=== PATIENT | male | born 1970 | race Asian ===

== ENCOUNTER 2017-03-06 22:55 | Emergency (ER) | payer MEDICAID ==
[~2017-03-06] VITALS: Ht 172.7 cm; Wt 186.0 kg
[~2017-03-06 22:55] MED LIST: OLAN15TA2 PO; QUET25TA PO
[2017-03-06] MEDS ORDERED: METO50 PO (23:05)
[2017-03-06] MEDS ORDERED: METF500T4 PO (23:05)
[2017-03-06 23:11] LABS: GLUCOSE COMMENT 1 Doctor Notified; GLUCOSE,POINT OF CARE 213 MG/DL (70-110)
[2017-03-07] MEDS ORDERED: PROPARACAINE HCL 0.5% 15 ML OPHTHALMIC SOLUTION OD ONE (01:15)
[2017-03-07 02:16] VITALS: BP 146/100
== END 2017-03-07 02:26 | disposition home or self-care (01) ==
LOC: EMS 22:58
DX: H33.22 Serous retinal detachment, left eye (principal); I10 Essential (primary) hypertension; E11.9 Type 2 diabetes mellitus without complications; F17.210 Nicotine dependence, cigarettes, uncomplicated
CPT/HCPCS: 82962; 99282

== ENCOUNTER 2017-04-18 10:36 | Inpatient (IN) | payer MEDICAID ==
[~2017-04-18] VITALS: Ht 172.7 cm; Wt 79.1 kg
[~2017-04-18 10:36] MED LIST changes: +METF500T4 PO; +METO50 PO
[2017-04-18 10:47] LABS: GLUCOSE,POINT OF CARE 142 MG/DL (70-110)
[2017-04-18 11:30] LABS: BASOPHILS % (AUTO) 0.2 % (0.0-2.0); EOSINOPHILS % (AUTO) 0.4 % (1.0-6.0); HEMATOCRIT 49.4 % (41-53); HEMOGLOBIN 16.3 g/dL (13.5-17.5); LYMPHOCYTES % (AUTO) 16.4 % (22.0-44.0); MEAN CORPUSCULAR HEMOGLOBIN 30.9 pg (26.0-34.0); MEAN CORPUSCULAR HGB CONC 32.9 G/dL (31.0-37.0); MEAN CORPUSCULAR VOLUME 94 fL (80-100); MONOCYTES # (AUTO) 0.8 K/uL (0.1-1.0); MONOCYTES % (AUTO) 6.9 % (2.0-9.0); NEUTROPHILS # (AUTO) 9.4 K/uL (1.8-7.7); NEUTROPHILS % (AUTO) 76.1 % (40.0-70.0); PLATELET COUNT (AUTO) 208 K/uL (150-450); RED BLOOD CELL COUNT(AUTO) 5.26 MIL/uL (4.50-5.90); RED CELL DISTRIBUTION WIDTH 13.1 % (11.5-14.5); WHITE BLOOD COUNT (AUTO) 12.3 K/uL (4.5-11.0)
[2017-04-18 11:40] LABS: ANION GAP 10 mmol/L (8-16); CALCIUM, TOTAL 8.6 mg/dL (8.8-10.5); CARBON DIOXIDE 27 mmol/L (22-29); CHLORIDE 102 mmol/L (98-107); CREATININE 1.35 mg/dL (0.60-1.30); GLOMERULAR FILTR. RATE CALC 57 mL/min (>60); POTASSIUM 3.9 mmol/L (3.5-5.1); SODIUM SERUM 139 mmol/L (136-145); UREA NITROGEN, BLOOD 10 mg/dL (7-18)
[2017-04-18] MEDS ORDERED: LORazepam 2 MG TABLET PO PRN (11:45)
[2017-04-18] MEDS ORDERED: OLANZapine 5 MG RAPDIS TABLET PO PRN (11:45)
[2017-04-18] MEDS ORDERED: ZOLPIDEM TARTRATE 10 MG TABLET PO PRN (11:45)
[2017-04-18 11:51] LABS: ALANINE AMINOTRANSFERASE 65 U/L (12-78); ALBUMIN 4.3 g/dL (3.4-5.0); ASPARTATE AMINOTRANSFERASE 33 U/L (15-37); BILIRUBIN,TOTAL 0.8 mg/dL (0.1-1.0); TOTAL PROTEIN, SERUM 7.8 g/dL (6.4-8.2)
[2017-04-18 11:52] LABS: SALICYLATE 1.4 mg/dL (2.8-20.0)
[2017-04-18 12:01] LABS: ACETAMINOPHEN < 2 mcg/mL (10-30)
[2017-04-18 12:24] LABS: LACTIC ACID 2.9 mmol/L (0.4-2.0)
[2017-04-18] MEDS ORDERED: SODIUM CHLORIDE 0.9% 1,000 ML IV ONE (13:00)
[2017-04-18 13:26] LABS: REFLEX LACTIC ACID? YES YES
[2017-04-18 14:58] LABS: GLUCOSE,POINT OF CARE 89 MG/DL (70-110)
[2017-04-18 15:05] LABS: ANION GAP 7 mmol/L (8-16); CALCIUM, TOTAL 8.3 mg/dL (8.8-10.5); CARBON DIOXIDE 28 mmol/L (22-29); CHLORIDE 104 mmol/L (98-107); CREATININE 1.21 mg/dL (0.60-1.30); GLOMERULAR FILTR. RATE CALC > 60 mL/min (>60); POTASSIUM 4.4 mmol/L (3.5-5.1); SODIUM SERUM 139 mmol/L (136-145); UREA NITROGEN, BLOOD 10 mg/dL (7-18)
[2017-04-18 15:09] LABS: SALICYLATE < 2.8 mg/dL (2.8-20.0)
[2017-04-18 15:11] LABS: ALANINE AMINOTRANSFERASE 60 U/L (12-78); ALBUMIN 3.8 g/dL (3.4-5.0); ASPARTATE AMINOTRANSFERASE 32 U/L (15-37); BILIRUBIN,TOTAL 0.7 mg/dL (0.1-1.0); TOTAL PROTEIN, SERUM 7.1 g/dL (6.4-8.2)
[2017-04-18 15:14] LABS: LACTIC ACID 1.4 mmol/L (0.4-2.0)
[2017-04-18 15:49] LABS: ACETAMINOPHEN < 2 mcg/mL (10-30)
[2017-04-18] MEDS ORDERED: HALOPERIDOL LACTATE 5 MG/ML VIAL ONE (16:26)
[2017-04-18] MEDS ORDERED: DiphenhydrAMINE HCL 50 MG/ML VIAL ONE (16:26)
[2017-04-18] MEDS ORDERED: LORazepam 2 MG/ML VIAL ONE (16:26)
[2017-04-18] MEDS ORDERED: HALOPERIDOL LACTATE 5 MG/ML VIAL IM ONE (16:30)
[2017-04-18] MEDS ORDERED: DiphenhydrAMINE HCL 50 MG/ML VIAL IM ONE (16:30)
[2017-04-18] MEDS ORDERED: LORazepam 2 MG TABLET PO ONE (16:30)
[2017-04-18] MEDS ORDERED: DiphenhydrAMINE HCL 50 MG CAPSULE PO ONE (16:30)
[2017-04-18] MEDS ORDERED: HALOPERIDOL 5 MG TABLET PO ONE (16:30)
[2017-04-18] MEDS ORDERED: LORazepam 2 MG/ML VIAL IM ONE (16:30)
[2017-04-18 17:23] LABS: GLUCOSE,POINT OF CARE 122 MG/DL (70-110)
[2017-04-18 18:08] VITALS: BP 133/73
[2017-04-18 18:27] LABS: GLUCOSE,POINT OF CARE 113 MG/DL (70-110)
[2017-04-18] MEDS ORDERED: INSULIN ASPART 100 UNITS/ML SQ PRN (18:45)
[2017-04-18] MEDS ORDERED: GLUCAGON,HUMAN RECOMBINANT 1 MG VIAL IM PRN (18:45)
[2017-04-18] MEDS ORDERED: PNEUMOCOCCAL VACCINE POLYVALENT 0.5 ML VIAL [PPSV23] IM ONE (19:00)
[2017-04-18] MEDS: OLANZapine 7.5 MG TABLET PO SCH (20:50)
[2017-04-18 21:48] LABS: GLUCOSE,POINT OF CARE 165 MG/DL (70-110)
[2017-04-19] MEDS: MetFORMIN HCL 500 MG TABLET PO SCH ×2 (06:25→17:05)
[2017-04-19 06:33] LABS: GLUCOSE,POINT OF CARE 109 MG/DL (70-110)
[2017-04-19 06:56] VITALS: BP 101/72
[2017-04-19 08:16] VITALS: BP 114/66
[2017-04-19 08:29] LABS: CHOL/HDL RATIO 3.6 (4.2-7.3)
[2017-04-19] MEDS: METOPROLOL TARTRATE 50 MG TABLET PO SCH ×2 (10:02→17:05)
[2017-04-19 16:00] VITALS: BP 112/68
[2017-04-19 17:43] LABS: GLUCOSE,POINT OF CARE 108 MG/DL (70-110)
[2017-04-19] MEDS ORDERED: ACETAMINOPHEN 325 MG TABLET PO PRN (18:15)
[2017-04-19] MEDS ORDERED: BACITRACIN 28.4 GM OINTMENT TP PRN (18:15)
[2017-04-19] MEDS ORDERED: MAGNESIUM HYDROXIDE SUSPENSION 30 ML UDCUP PO PRN (18:15)
[2017-04-19] MEDS ORDERED: PETROLATUM,WHITE 71 GM JELLY TP PRN (18:15)
[2017-04-19] MEDS ORDERED: IBUPROFEN 600 MG TABLET PO PRN (18:15)
[2017-04-19] MEDS ORDERED: MAG HYDROX/AL HYDROX/SIMETH ES 30 ML SUSPENSION UDCUP PO PRN (18:15)
[2017-04-19] MEDS ORDERED: ONDANSETRON HCL 4 MG TABLET PO PRN (18:15)
[2017-04-19] MEDS ORDERED: CloNIDine HCL 0.1 MG TABLET PO PRN (18:15)
[2017-04-19] MEDS ORDERED: LOPERAMIDE HCL 2 MG CAPSULE PO PRN (18:15)
[2017-04-19] MEDS ORDERED: ALBUTEROL SULFATE HFA 90 MCG/PUFF 8 GM INHALER IH PRN (18:15)
[2017-04-19] MEDS ORDERED: BENZOCAINE/MENTHOL LOZENGE MM PRN (18:15)
[2017-04-19] MEDS: OLANZapine 7.5 MG TABLET PO SCH (20:39)
[2017-04-19 21:14] LABS: GLUCOSE,POINT OF CARE 137 MG/DL (70-110)
[2017-04-20 01:41] VITALS: BP 103/64
[2017-04-20 06:08] LABS: GLUCOSE,POINT OF CARE 94 MG/DL (70-110)
[2017-04-20] MEDS: MetFORMIN HCL 500 MG TABLET PO SCH ×2 (06:20→16:35)
[2017-04-20 08:38] VITALS: BP 109/69
[2017-04-20] MEDS: METOPROLOL TARTRATE 50 MG TABLET PO SCH ×2 (09:20→16:35)
[2017-04-20 11:07] LABS: GLUCOSE,POINT OF CARE 124 MG/DL (70-110)
[2017-04-20 16:00] VITALS: BP 115/70
[2017-04-20 17:12] LABS: GLUCOSE,POINT OF CARE 116 MG/DL (70-110)
[2017-04-20] MEDS: OLANZapine 7.5 MG TABLET PO SCH (20:25)
[2017-04-20 20:36] LABS: GLUCOSE,POINT OF CARE 127 MG/DL (70-110)
[2017-04-21 06:02] LABS: GLUCOSE,POINT OF CARE 137 MG/DL (70-110)
[2017-04-21] MEDS: MetFORMIN HCL 500 MG TABLET PO SCH (06:11)
[2017-04-21 06:38] VITALS: BP 103/67
[2017-04-21] MEDS: METOPROLOL TARTRATE 50 MG TABLET PO SCH (08:39)
[2017-04-21 08:47] VITALS: BP 112/73
[2017-04-21 11:47] LABS: GLUCOSE,POINT OF CARE 94 MG/DL (70-110)
== END 2017-04-21 12:15 | disposition home or self-care (01) | DRG 750 ==
LOC: EMS 10:37 → B3A 13:50
DX: F20.0 Paranoid schizophrenia (principal); E11.65 Type 2 diabetes mellitus with hyperglycemia; I10 Essential (primary) hypertension; T38.3X2A Poisoning by insulin and oral hypoglycemic [antidiabetic] drugs, intentional self-harm, initial encounter; Y92.009 Unspecified place in unspecified non-institutional (private) residence as the place of occurrence of the external cause; F15.10 Other stimulant abuse, uncomplicated; F17.200 Nicotine dependence, unspecified, uncomplicated; K59.00 Constipation, unspecified; G47.00 Insomnia, unspecified; Z91.14 Patient's other noncompliance with medication regimen
CPT/HCPCS: 82948; 82962; 83605; 87081; 93005; 96360; 96361; 96372; 99285; G0480; G0481; J1200; J1630; J2060; J7030

== ENCOUNTER 2018-09-09 07:15 | Emergency (ER) | payer MEDICAID ==
[~2018-09-09] VITALS: Ht 172.7 cm; Wt 84.1 kg
[~2018-09-09 07:15] MED LIST changes: +METF-960 PO; -METF500T4 PO; -QUET25TA PO
[2018-09-09] MEDS ORDERED: ENTE0.5T4 PO (07:37)
[2018-09-09] MEDS ORDERED: ASPI-1182 PO (07:37)
[2018-09-09 07:46] VITALS: BP 155/120
[2018-09-09 07:46] LABS: BASOPHILS % (AUTO) 0.5 % (0.0-2.0); HEMATOCRIT 47.6 % (41-53); LYMPHOCYTES # (AUTO) 2.2 K/uL (1.0-4.8); LYMPHOCYTES % (AUTO) 26.2 % (22.0-44.0); MEAN CORPUSCULAR HGB CONC 35.8 G/dL (31.0-37.0); MEAN CORPUSCULAR VOLUME 92 fL (80-100); MONOCYTES % (AUTO) 11.6 % (2.0-9.0); NEUTROPHILS # (AUTO) 5.1 K/uL (1.8-7.7); NEUTROPHILS % (AUTO) 59.7 % (40.0-70.0); PLATELET COUNT (AUTO) 162 K/uL (150-450); RED BLOOD CELL COUNT(AUTO) 5.16 MIL/uL (4.50-5.90)
[2018-09-09 07:54] LABS: ANION GAP 10 mmol/L (8-16); CARBON DIOXIDE 27 mmol/L (22-29); CHLORIDE 104 mmol/L (98-107); CREATININE 1.07 mg/dL (0.60-1.30); GLOMERULAR FILTR. RATE CALC > 60 mL/min (>60); GLUCOSE,RANDOM 160 mg/dL (70-110); POTASSIUM 3.6 mmol/L (3.5-5.1); SODIUM SERUM 141 mmol/L (136-145); UREA NITROGEN, BLOOD 9 mg/dL (7-18)
[2018-09-09 08:00] LABS: ALANINE AMINOTRANSFERASE 100 U/L (12-78); ALKALINE PHOSPHATASE 66 U/L (46-116); ASPARTATE AMINOTRANSFERASE 67 U/L (15-37); BILIRUBIN,TOTAL 1.4 mg/dL (0.1-1.0); TOTAL PROTEIN, SERUM 8.4 g/dL (6.4-8.2)
[2018-09-09 08:09] LABS: GLUCOSE,POINT OF CARE 167 MG/DL (70-110)
== END 2018-09-09 09:15 | disposition home or self-care (01) ==
LOC: EMS 07:16
DX: F32.9 Major depressive disorder, single episode, unspecified (principal); E11.9 Type 2 diabetes mellitus without complications; I10 Essential (primary) hypertension; F20.9 Schizophrenia, unspecified; F17.210 Nicotine dependence, cigarettes, uncomplicated; Z79.84 Long term (current) use of oral hypoglycemic drugs; Z79.82 Long term (current) use of aspirin; Z79.899 Other long term (current) drug therapy
CPT/HCPCS: 36415; 80053; 82962; 85025; 99285; G0480

== ENCOUNTER 2023-04-20 13:57 | Inpatient (IN) | payer MEDICAID ==
[~2023-04-20] VITALS: Ht 172.7 cm; Wt 76.7 kg
[~2023-04-20 13:57] MED LIST changes: +LISI5TAB21 PO; +METF-1211 PO; -METF-960 PO; +METO25 PO; -METO50 PO
[2023-04-20 15:35] LABS: ANION GAP 9 mmol/L (8-16); CALCIUM, TOTAL 9.7 mg/dL (8.8-10.5); CARBON DIOXIDE 28 mmol/L (22-29); CHLORIDE 104 mmol/L (98-107); CREATININE 1.36 mg/dL (0.60-1.30); GLOMERULAR FILTR. RATE CALC 55 mL/min (>60); GLUCOSE,RANDOM 98 mg/dL (70-110); POTASSIUM 3.8 mmol/L (3.5-5.1); SODIUM SERUM 141 mmol/L (136-145)
[2023-04-20 15:40] LABS: ALANINE AMINOTRANSFERASE 52 U/L (12-78); ALBUMIN 3.9 g/dL (3.4-5.0); ALKALINE PHOSPHATASE 79 U/L (46-116); ASPARTATE AMINOTRANSFERASE 55 U/L (15-37); BILIRUBIN,TOTAL 0.5 mg/dL (0.1-1.0); TOTAL PROTEIN, SERUM 7.9 g/dL (6.4-8.2)
[2023-04-20 15:46] LABS: COVID AG,FIA SOURCE NASOPHARYNGEAL
[2023-04-20] MEDS ORDERED: LORazepam 2 MG TABLET PO PRN (16:15)
[2023-04-20] MEDS ORDERED: HALOPERIDOL 5 MG TABLET PO PRN (16:15)
[2023-04-20 17:24] LABS: BASOPHILS % (AUTO) 0.4 % (0.0-2.0); EOSINOPHILS % (AUTO) 2.5 % (1.0-6.0); HEMATOCRIT 40.3 % (41-53); HEMOGLOBIN 13.8 g/dL (13.5-17.5); LYMPHOCYTES # (AUTO) 2.8 K/uL (1.0-4.8); LYMPHOCYTES % (AUTO) 36.7 % (22.0-44.0); MEAN CORPUSCULAR HEMOGLOBIN 31.2 pg (26.0-34.0); MEAN CORPUSCULAR HGB CONC 34.1 G/dL (31.0-37.0); MEAN CORPUSCULAR VOLUME 92 fL (80-100); MONOCYTES # (AUTO) 0.8 K/uL (0.1-1.0); MONOCYTES % (AUTO) 10.7 % (2.0-9.0); NEUTROPHILS # (AUTO) 3.7 K/uL (1.8-7.7); NEUTROPHILS % (AUTO) 49.7 % (40.0-70.0); PLATELET COUNT (AUTO) 223 K/uL (150-450); RED BLOOD CELL COUNT(AUTO) 4.41 MIL/uL (4.50-5.90); RED CELL DISTRIBUTION WIDTH 12.7 % (11.5-14.5)
[2023-04-20 20:53] VITALS: BP 108/84
[2023-04-21] MEDS ORDERED: GuaiFENesin/D-METHORPHAN [SUGAR-FREE] 200-20MG/10 ML SYRUP UDCUP PO PRN (06:30)
[2023-04-21] MEDS ORDERED: NICOTINE 14 MG/24 HOUR PATCH TD PRN (06:30)
[2023-04-21] MEDS ORDERED: DOCUSATE SODIUM 100 MG CAPSULE PO PRN (06:30)
[2023-04-21] MEDS ORDERED: CloNIDine HCL 0.1 MG TABLET PO PRN (06:30)
[2023-04-21] MEDS ORDERED: MAGNESIUM HYDROXIDE SUSPENSION 30 ML UDCUP PO PRN (06:30)
[2023-04-21] MEDS ORDERED: LOPERAMIDE HCL 2 MG CAPSULE PO PRN (06:30)
[2023-04-21] MEDS ORDERED: PETROLATUM,WHITE 28 GM JELLY TP PRN (06:30)
[2023-04-21] MEDS ORDERED: ALBUTEROL SULFATE HFA 90 MCG/PUFF 8 GM INHALER IH PRN (06:30)
[2023-04-21] MEDS ORDERED: ACETAMINOPHEN 325 MG TABLET PO PRN (06:30)
[2023-04-21] MEDS ORDERED: ONDANSETRON HCL 4 MG TABLET PO PRN (06:30)
[2023-04-21] MEDS ORDERED: MAG HYDROX/AL HYDROX/SIMETH ES 30 ML SUSPENSION UDCUP PO PRN (06:30)
[2023-04-21] MEDS: MetFORMIN HCL 500 MG TABLET PO SCH ×2 (06:50→17:05)
[2023-04-21] MEDS: LISINOPRIL 5 MG TABLET PO SCH (08:22)
[2023-04-21] MEDS: METOPROLOL TARTRATE 25 MG TABLET PO SCH ×2 (08:22→17:00)
[2023-04-21 17:03] VITALS: BP 91/65
[2023-04-21 20:20] VITALS: BP 105/70
[2023-04-21] MEDS: OLANZapine 10 MG TABLET PO SCH (20:29)
[2023-04-21] MEDS: IBUPROFEN 400 MG TABLET PO PRN (20:29)
[2023-04-22] MEDS: MetFORMIN HCL 500 MG TABLET PO SCH ×2 (06:20→16:36)
[2023-04-22] MEDS: LISINOPRIL 5 MG TABLET PO SCH (08:41)
[2023-04-22 08:42] VITALS: BP 144/79
[2023-04-22] MEDS: METOPROLOL TARTRATE 25 MG TABLET PO SCH ×2 (08:42→16:36)
[2023-04-22 16:34] VITALS: BP 119/70
[2023-04-22] MEDS ORDERED: ZOLP10TA8 PO (17:35)
[2023-04-22] MEDS ORDERED: OLAN20TA35 PO (17:35)
[2023-04-22] MEDS ORDERED: ARIP15TA27 PO (17:35)
[2023-04-22] MEDS ORDERED: METO50 PO (17:35)
[2023-04-22] MEDS ORDERED: OLAN10 PO (17:35)
[2023-04-22] MEDS ORDERED: TENO25TA PO (17:35)
[2023-04-22] MEDS ORDERED: QUET400T54 PO (17:35)
[2023-04-22] MEDS: ZOLPIDEM TARTRATE 10 MG TABLET PO PRN (20:46)
[2023-04-22] MEDS: OLANZapine 10 MG TABLET PO SCH (20:46)
[2023-04-22 22:10] VITALS: BP 125/72
[2023-04-23] MEDS: MetFORMIN HCL 500 MG TABLET PO SCH ×2 (06:01→16:10)
[2023-04-23 08:06] LABS: BASOPHILS % (AUTO) 0.4 % (0.0-2.0); EOSINOPHILS % (AUTO) 1.8 % (1.0-6.0); HEMATOCRIT 44.8 % (41-53); HEMOGLOBIN 15.1 g/dL (13.5-17.5); LYMPHOCYTES # (AUTO) 2.8 K/uL (1.0-4.8); LYMPHOCYTES % (AUTO) 32.2 % (22.0-44.0); MEAN CORPUSCULAR HGB CONC 33.7 G/dL (31.0-37.0); MEAN CORPUSCULAR VOLUME 92 fL (80-100); MONOCYTES # (AUTO) 0.9 K/uL (0.1-1.0); MONOCYTES % (AUTO) 10.4 % (2.0-9.0); NEUTROPHILS # (AUTO) 4.8 K/uL (1.8-7.7); NEUTROPHILS % (AUTO) 55.2 % (40.0-70.0); PLATELET COUNT (AUTO) 238 K/uL (150-450); RED BLOOD CELL COUNT(AUTO) 4.87 MIL/uL (4.50-5.90); RED CELL DISTRIBUTION WIDTH 12.9 % (11.5-14.5)
[2023-04-23 08:13] LABS: HEMOGLOBIN A1C 7.2 % (3.8-5.6)
[2023-04-23 08:24] VITALS: BP 132/72
[2023-04-23] MEDS: LISINOPRIL 5 MG TABLET PO SCH (08:25)
[2023-04-23] MEDS: METOPROLOL TARTRATE 25 MG TABLET PO SCH ×2 (08:25→16:10)
[2023-04-23 08:32] LABS: THYROID STIMULATING HORMONE 0.13 uIU/mL (0.36-3.74)
[2023-04-23] MEDS: IBUPROFEN 400 MG TABLET PO PRN (16:21)
[2023-04-23] MEDS ORDERED: IBUPROFEN 600 MG TABLET PO PRN (18:15)
[2023-04-23] MEDS ORDERED: BENZOCAINE/MENTHOL/ZINC CL 20% 11.9 GM GEL TP PRN (18:15)
[2023-04-23 18:37] LABS: APPEARANCE,URINE CLEAR (CLEAR); BILIRUBIN,URINE NEGATIVE (NEGATIVE); GLUCOSE, URINE (UA) 150-200 mg/dL (NEGATIVE); KETONES,URINE NEGATIVE (NEGATIVE); LEUKOCYTE ESTERASE ,URINE NEGATIVE (NEGATIVE); NITRATE,URINE NEGATIVE (NEGATIVE); OCCULT BLOOD,URINE NEGATIVE (NEGATIVE); PH,URINE 5.5 (5.0-8.0); PROTEIN,URINE NEGATIVE (NEGATIVE); SPECIFIC GRAVITIY, URINE 1.015 (1.003-1.030); UROBILINOGEN,URINE <=1.0 mg/dL (<=1.0)
[2023-04-23 18:44] LABS: AMPHET/METH SCREEN,URINE POSITIVE (NEGATIVE); BARBITURATE SCREEN, URINE NEGATIVE (NEGATIVE); BENZODIAZEPINES SCREEN,URINE NEGATIVE (NEGATIVE); CANNABINOID SCREEN,URINE NEGATIVE (NEGATIVE); COCAINE SCREEN,URINE NEGATIVE (NEGATIVE); METHADONE SCREEN, URINE NEGATIVE (NEGATIVE); OPIATE SCREEN,URINE NEGATIVE (NEGATIVE); PHENCYCLIDINE SCREEN,URINE NEGATIVE (NEGATIVE)
[2023-04-23 18:57] LABS: BACTERIA,URINE Rare /HPF (None Seen); RBC,URINE 0-2 /HPF (0-2); SQUAMOUS EPITHELIAL CELL,UR Rare /LPF (None Seen); WBC,URINE 0-2 /HPF (0-5)
[2023-04-23 20:27] VITALS: BP 145/74
[2023-04-23] MEDS: OLANZapine 10 MG TABLET PO SCH (20:56)
[2023-04-23] MEDS: ZOLPIDEM TARTRATE 10 MG TABLET PO PRN (20:56)
[2023-04-24] MEDS: MetFORMIN HCL 500 MG TABLET PO SCH (06:37)
[2023-04-24] MEDS: METOPROLOL TARTRATE 25 MG TABLET PO SCH (08:12)
[2023-04-24] MEDS: LISINOPRIL 5 MG TABLET PO SCH (08:12)
[2023-04-24 08:34] VITALS: BP 148/95
[2023-04-24] MEDS ORDERED: IBUP-1492 PO (10:52)
[2023-04-24] MEDS ORDERED: METF-1211 PO (10:52)
[2023-04-24] MEDS ORDERED: LISI-892 PO (10:52)
[2023-04-24] MEDS ORDERED: BENZ11.95 TP (10:52)
[2023-04-24] MEDS ORDERED: METO25 PO (10:52)
== END 2023-04-24 14:21 | disposition home or self-care (01) | DRG 750 ==
LOC: EMS 14:13 → B3A 16:50
PROVIDERS: ADMIT Psychiatry & Neurology Child & Adolescent Psychiatry; ATTEND Psychiatry & Neurology Child & Adolescent Psychiatry
DX: F20.0 Paranoid schizophrenia (principal); E11.9 Type 2 diabetes mellitus without complications; F32.A Depression, unspecified; G47.00 Insomnia, unspecified; I10 Essential (primary) hypertension; J44.9 Chronic obstructive pulmonary disease, unspecified; F41.9 Anxiety disorder, unspecified; Z20.822 Contact with and (suspected) exposure to COVID-19; Z87.891 Personal history of nicotine dependence; Z79.899 Other long term (current) drug therapy
CPT/HCPCS: 80053; 80061; 80307; 81001; 83036; 84439; 84443; 85025; 99285; G0480

== ENCOUNTER 2023-07-29 14:15 | Emergency (ER) | payer MEDICAID ==
[~2023-07-29] VITALS: Ht 170.2 cm; Wt 82.7 kg
[~2023-07-29 14:15] MED LIST changes: +BENZ11.95 TP; +IBUP-1492 PO; +LISI-892 PO; -LISI5TAB21 PO; -OLAN15TA2 PO
[2023-07-29 14:29] VITALS: TEMP 98
[2023-07-29 16:30] VITALS: BP 154/99; PULSE 105; RESP 19
[2023-07-29] MEDS ORDERED: IBUP-1554 PO (17:11)
== END 2023-07-29 17:20 | disposition home or self-care (01) ==
LOC: EMS 14:35
DX: S53.402A Unspecified sprain of left elbow, initial encounter (principal); F41.9 Anxiety disorder, unspecified; F32.A Depression, unspecified; E11.9 Type 2 diabetes mellitus without complications; I10 Essential (primary) hypertension; F20.9 Schizophrenia, unspecified; F17.210 Nicotine dependence, cigarettes, uncomplicated; X58.XXXA Exposure to other specified factors, initial encounter; Y93.89 Activity, other specified; Y92.89 Other specified places as the place of occurrence of the external cause; Y99.8 Other external cause status
CPT/HCPCS: 82962; 99284

== ENCOUNTER 2023-09-16 08:54 | Emergency (ER) | payer MEDICAID ==
[~2023-09-16 08:54] MED LIST changes: +IBUP-1554 PO
== END 2023-09-16 09:02 | disposition left against medical advice (07) ==
LOC: EMS 08:58
DX: Z53.21 Procedure and treatment not carried out due to patient leaving prior to being seen by health care provider (principal)

== ENCOUNTER 2023-12-06 01:38 | Emergency (ER) | payer MEDICAID ==
[~2023-12-06] VITALS: Ht 172.7 cm; Wt 76.0 kg
[2023-12-06 01:59] VITALS: BP 153/88; PULSE 90; RESP 20; TEMP 98.2
[2023-12-06 02:51] LABS: BASOPHILS % (AUTO) 0.7 % (0.0-2.0); EOSINOPHILS % (AUTO) 1.7 % (1.0-6.0); HEMATOCRIT 38.6 % (41-53); HEMOGLOBIN 13.3 g/dL (13.5-17.5); LYMPHOCYTES # (AUTO) 2.5 K/uL (1.0-4.8); LYMPHOCYTES % (AUTO) 29.5 % (22.0-44.0); MEAN CORPUSCULAR HEMOGLOBIN 31.6 pg (26.0-34.0); MEAN CORPUSCULAR HGB CONC 34.5 G/dL (31.0-37.0); MEAN CORPUSCULAR VOLUME 92 fL (80-100); MONOCYTES # (AUTO) 1.1 K/uL (0.1-1.0); MONOCYTES % (AUTO) 13.3 % (2.0-9.0); NEUTROPHILS # (AUTO) 4.6 K/uL (1.8-7.7); NEUTROPHILS % (AUTO) 54.8 % (40.0-70.0); PLATELET COUNT (AUTO) 215 K/uL (150-450); RED BLOOD CELL COUNT(AUTO) 4.21 MIL/uL (4.50-5.90); RED CELL DISTRIBUTION WIDTH 12.8 % (11.5-14.5); WHITE BLOOD COUNT (AUTO) 8.4 K/uL (4.5-11.0)
[2023-12-06 03:03] LABS: ANION GAP 6 mmol/L (8-16); CARBON DIOXIDE 30 mmol/L (22-29); CHLORIDE 103 mmol/L (98-107); CREATININE 1.25 mg/dL (0.60-1.30); GLOMERULAR FILTR. RATE CALC > 60 mL/min (>60); GLUCOSE,RANDOM 113 mg/dL (70-110); POTASSIUM 4.8 mmol/L (3.5-5.1); SODIUM SERUM 139 mmol/L (136-145); UREA NITROGEN, BLOOD 15 mg/dL (7-18)
[2023-12-06 03:09] LABS: ALANINE AMINOTRANSFERASE 34 U/L (12-78); ALBUMIN 3.7 g/dL (3.4-5.0); ALKALINE PHOSPHATASE 72 U/L (46-116); ASPARTATE AMINOTRANSFERASE 46 U/L (15-37); BILIRUBIN,TOTAL 0.8 mg/dL (0.1-1.0); TOTAL PROTEIN, SERUM 7.2 g/dL (6.4-8.2)
[2023-12-06 03:19] LABS: ALCOHOL, BLOOD (SERUM) < 3 mg/dL (0-10)
[2023-12-06] MEDS ORDERED: OLANZapine 5 MG TABLET PO ONE (04:00)
[2023-12-06] MEDS ORDERED: LORazepam 1 MG TABLET PO ONE (04:00)
== END 2023-12-06 04:39 | disposition home or self-care (01) ==
LOC: EMS 01:39
DX: F20.9 Schizophrenia, unspecified (principal); F41.9 Anxiety disorder, unspecified; F32.A Depression, unspecified; E11.9 Type 2 diabetes mellitus without complications; I10 Essential (primary) hypertension; F17.210 Nicotine dependence, cigarettes, uncomplicated
CPT/HCPCS: 99284; 80053; 85025; 36415; G0480

== ENCOUNTER 2023-12-27 00:09 | Inpatient (IN) | payer MEDICAID ==
[~2023-12-27] VITALS: Ht 167.6 cm; Wt 72.6 kg
[2023-12-27] MEDS ORDERED: ZOLPIDEM TARTRATE 10 MG TABLET PO PRN (03:45)
[2023-12-27] MEDS ORDERED: HALOPERIDOL 5 MG TABLET PO PRN (03:45)
[2023-12-27 04:22] VITALS: BP 127/79; PULSE 75; RESP 18; TEMP 98.1; O2SAT 99
[2023-12-27] MEDS ORDERED: INFLUENZA VIRUS VACCINE QVS 2023-24 (6MO+)/PF 60 MCG/0.5 ML SYRINGE IM. ONE (05:15)
[2023-12-27] MEDS ORDERED: PNEUMOCOCCAL VACCINE POLYVALENT 0.5 ML SYRINGE [PPSV23] IM. ONE (05:15)
[2023-12-27 06:36] LABS: GLUCOMETER DEV NAME(LOC) BV3N.; GLUCOSE,POINT OF CARE 143 MG/DL (70-110)
[2023-12-27 08:07] VITALS: RESP 17
[2023-12-27 08:08] VITALS: BP 132/81; PULSE 82; RESP 19; TEMP 98
[2023-12-27] MEDS: LISINOPRIL 5 MG TABLET PO SCH (08:23)
[2023-12-27] MEDS: METOPROLOL TARTRATE 25 MG TABLET PO SCH (08:24)
[2023-12-27] MEDS: OLANZapine 10 MG RAPDIS TABLET PO SCH (13:55)
[2023-12-27] MEDS: LORazepam 2 MG TABLET PO PRN (16:24)
[2023-12-27 21:26] VITALS: BP 128/65; PULSE 94; RESP 16; TEMP 98.2; O2SAT 98
[2023-12-28] MEDS: MetFORMIN HCL 500 MG TABLET PO SCH (06:18)
[2023-12-28] MEDS ORDERED: OLAN10TA26 PO ×2 (11:21→21:44)
[2023-12-28] MEDS ORDERED: METF-1211 PO (21:44)
[2023-12-28] MEDS ORDERED: METO25 PO (21:44)
[2023-12-28] MEDS ORDERED: LISI-892 PO (21:44)
== END 2023-12-28 12:23 | disposition home or self-care (01) | DRG 750 ==
LOC: B3A 03:56
PROVIDERS: ADMIT Psychiatry & Neurology Psychiatry; ATTEND Psychiatry & Neurology Psychiatry
DX: F20.0 Paranoid schizophrenia (principal); E11.9 Type 2 diabetes mellitus without complications; I10 Essential (primary) hypertension; G47.00 Insomnia, unspecified; Z20.822 Contact with and (suspected) exposure to COVID-19; E78.5 Hyperlipidemia, unspecified; F15.10 Other stimulant abuse, uncomplicated
CPT/HCPCS: 82962